=== PATIENT | female | born 1970 | race Caucasian/White ===

== ENCOUNTER 2018-05-29 01:38 | Emergency (ER) | payer OTHER ==
[2018-05-29 01:48] VITALS: TEMP 98.7; BMI 24.7
--- NOTE | 2018-05-29 03:14 | PDOC ---
History of Present Illness - General Chief Complaint: Substance Abuse Stated Complaint: POSSIBLE OVERDOSE Time Seen by Provider: 05/29/18 03:10 - History of Present Illness Initial Comments: 05/29/18 04:54 48f with hx of opiates abuse present to the ED BIBEMS after overdosing on heroin bagsx2 EMS gave 0.4mg narcan IV at 1:10am. Patient immediately woke up. Patient now awake. but seen nodding off briefly. Will observe for few hours. Past History - Past Medical History Allergies/Adverse Reactions: Allergies Allergy/AdvReac Type Severity Reaction Status Date / Time codeine Allergy Verified 05/29/18 01:49 Home Medications: Ambulatory Orders Alprazolam [Xanax] 2 mg PO TID 05/29/18 Clonazepam [Klonopin] 4 mg PO HS 05/29/18 Escitalopram Oxalate [Lexapro -] 10 mg PO DAILY 05/29/18 - Suicide/Smoking/Psychosocial Hx Smoking History: Unknown if ever smoked Have you smoked in the past 12 months: No Information on smoking cessation initiated: No Hx Alcohol Use: Yes Drug/Substance Use Hx: Yes (heroin) Review of Systems - Review of Systems Able to Perform ROS?: Yes Is the patient limited Urdu proficient: No Constitutional: No: Symptoms Reported HEENTM: No: Symptoms Reported Respiratory: No: Symptoms reported Cardiac (ROS): No: Symptoms Reported ABD/GI: No: Symptoms Reported : No: Symptoms Reported Musculoskeletal: No: Symptoms Reported Integumentary: No: Symptoms Reported Neurological: No: Symptoms reported All Other Systems: Reviewed and Negative *Physical Exam - Vital Signs Last Vital Signs Temp Pulse Resp BP Pulse Ox 98.7 F 88 22 129/73 98 05/29/18 01:47 05/29/18 01:47 05/29/18 01:47 05/29/18 01:47 05/29/18 01:47 - Physical Exam General Appearance: Yes: Nourished, Appropriately Dressed, Apparent Distress HEENT: positive: EOMI, FRANKI, Normal ENT Inspection Respiratory/Chest: positive: Lungs Clear, Normal Breath Sounds. negative: Chest Tender, Respiratory Distress Cardiovascular: positive: Regular Rhythm, Regular Rate, S1, S2 Gastrointestinal/Abdominal: positive: Normal Bowel Sounds, Flat, Soft. negative : Tender Integumentary: positive: Normal Color, Dry Neurologic: positive: Fully Oriented, Alert, Normal Mood/Affect, Normal Response , Motor Strength 03/26 ED Treatment Course - LABORATORY CBC & Chemistry Diagram: 05/29/18 04:39 05/29/18 04:39 Medical Decision Making - Medical Decision Making 05/29/18 04:56 EKG, Basic labs negative EKG: short AK. Will observe till she danie up 05/29/18 05:32 *DC/Admit/Observation/Transfer Diagnosis at time of Disposition: Heroin overdose - Discharge Dispostion Disposition: HOME Condition at time of disposition: Improved Decision to Admit order: No - Referrals - Patient Instructions Printed Discharge Instructions: DI for Drug Overdose in Adults Additional Instructions: Come back to the emergency department for any new, worsening or concerning symptom. - Post Discharge Activity
[2018-05-29 04:56] LABS: BASO % 0.7 % (0-2.0); EOS % 1.7 % (0-4.5); HEMATOCRIT 36.5 % (32.4-45.2); HEMOGLOBIN 12.5 GM/dL (10.7-15.3); LYMPH % 24.5 % (8-40); MCH 30.9 pg (25.7-33.7); MCHC 34.1 g/dl (32.0-36.0); MEAN CELL VOLUME 90.7 fl (80-96); MEAN PLT VOLUME 8.6 fl (7.5-11.1); MONO % 8.4 % (3.8-10.2); NEUT % 64.7 % (42.8-82.8); PLATELET COUNT 234 K/MM3 (134-434); RBC 4.02 M/mm3 (3.60-5.2); RDW 13.1 % (11.6-15.6); WHITE BLOOD COUNT 7.1 K/mm3 (4.0-10.0)
[2018-05-29 05:19] LABS: ALBUMIN 3.5 g/dl (3.4-5.0); ALK PHOS 72 U/L (45-117); ANION GAP 3 (8-16); BILIRUBIN,TOTAL 0.2 mg/dL (0.2-1.0); BLOOD UREA NITROGEN 7 mg/dL (7-18); CALCIUM 8.6 mg/dL (8.5-10.1); CHLORIDE 108 mmol/L (98-107); CO2 31 mmol/L (21-32); CREATININE 0.7 mg/dL (0.55-1.02); GLUCOSE,RANDOM 134 mg/dL (74-106); POTASSIUM 3.6 mmol/L (3.5-5.1); SGOT/AST 15 U/L (15-37); SGPT/ALT 21 U/L (12-78); SODIUM 142 mmol/L (136-145); TOT PROT 6.5 g/dl (6.4-8.2)
[2018-05-29 05:33] LABS: URINE AMPHETAMINES NEGATIVE ng/ml (CUTOFF=500)
[2018-05-29 05:34] LABS: METHADONE, UR NEGATIVE ng/ml (CUTOFF=300); PHENCYCLIDINE,URINE NEGATIVE ng/ml (CUTOFF=25); URINE BARBITURATES NEGATIVE ng/ml (CUTOFF=200)
[2018-05-29 05:35] LABS: URINE BENZODIAZEPINES POSITIVE ng/ml (CUTOFF=200)
[2018-05-29 05:36] LABS: COCAINE, UR POSITIVE ng/ml (CUTOFF=300); OPIATES, URI POSITIVE ng/ml (CUTOFF=300)
[2018-05-29 05:37] VITALS: BP 101/62; PULSE 64
--- NOTE | 2018-05-29 05:42 | PDOC ---
Attending Attestation - Resident Resident Name: Kaden Owens - ED Attending Attestation I have performed the following: I have examined & evaluated the patient, The case was reviewed & discussed with the resident, I agree w/resident's findings & plan - HPI HPI: 05/29/18 05:39 Pt comes with opiate abuse and EMS was called; she woke up after narcan as per EMS; now wide awake and calm in the ER. - Physicial Exam PE: 05/29/18 05:40 Agree with resident exam - Medical Decision Making 05/29/18 05:41 Labs done, as pt has never been here before and she is a poor historain. Labs are normal. Pt's utox is positive for benzos, opiates and cocaine. Pt will be advised to say no to drugs. Stable to go home. <Aleshia Powell - Last Filed: 05/29/18 05:38> Heart Score/ECG Review - ECG Impressions Comment:: 05/29/18 06:[address] Powell at 3:58. Impression: Sinus rhythm with short IN at 64bpm. Otherwise normal ECG. <Jamar Morgan - Last Filed: 05/29/18 06:41>
--- NOTE | 2018-05-29 10:08 | EKG ---
Test Reason : Blood Pressure : / mmHG Vent. Rate : 064 BPM Atrial Rate : 064 BPM P-R Int : 108 ms QRS Dur : 086 ms QT Int : 392 ms P-R-T Axes : 020 032 024 degrees QTc Int : 404 ms SINUS RHYTHM WITH SHORT IN OTHERWISE NORMAL ECG NO PREVIOUS ECGS AVAILABLE Confirmed by ADITI MURO MD ([id number]) on 05/29/2018 10:07:44 AM Referred By: Confirmed By:ADITI MURO MD
== END 2018-05-29 05:48 | disposition home or self-care (01) ==
LOC: JER 01:38
DX: T40.1X1A Poisoning by heroin, accidental (unintentional), initial encounter (principal); Y92.89 Other specified places as the place of occurrence of the external cause
CPT/HCPCS: 36415; 80053; 80307; 84703; 85025; 93005; 93010; 99284-25